=== PATIENT | female | born 1940 | race Caucasian/White ===

== ENCOUNTER 2016-12-17 15:02 | Inpatient (IN) | payer MEDICARE ==
--- NOTE | ~2016-12-17 | DS ---
Unit #: [id number] #: [id number] Patient: ROSALIE LEYVA [id number] [address] [place], [place] [address] [id number] MR#: [id number] NAME: ROSALIE LEYVA ROOM: 462 Age: 76 Sex: F Admission Date: 12/18/2016 : 1940 Discharge Date: 12/24/2016 Attending Physician: Ludy Hoover M.D. Primary Care Physician: Yuriy Tolentino M.D. DISCHARGE SUMMARY FINAL DIAGNOSES 1. Colitis, which is improved. 2. Dehydration. 3. Clostridium difficile negative. 4. Acute kidney injury. 5. Acute on chronic systolic congestive heart failure. 6. Valvular heart disease with aqcm-pt-ladevsmw mitral regurgitation. 7. Elevated troponin. 8. Urinary tract infection with extended spectrum beta lactamases Klebsiella pneumonia positive. 9. Anemia. 10. Multivessel coronary artery disease. 11. History of right cerebrovascular accident. 12. Chronic obstructive pulmonary disease. 13. Hypertension. 14. Hyperlipidemia. 15. Diabetes mellitus type 2. 16. Deep venous thrombosis with filter placement. 17. Past history of gastrointestinal bleed. DISCHARGE MEDICATIONS 1. Mini neb treatment with albuterol q.i.d. 2. Xanax 0.5 mg b.i.d. p.r.n. 3. Coreg 3.125 mg p.o. twice a day. 4. IV meropenem 500 mg q.12 for five days. 5. Potassium 20 mEq twice a day. 6. Aspirin 81 mg daily. 7. Pepcid 20 mg daily. 8. Fish oil capsule 1000 mg b.i.d. 9. Bumex 1 mg twice a day. 10. Tradjenta 5 mg daily. CONSULTATIONS IN THE HOSPITAL 1. Dr. Mix from [facility]. 2. Dr. Saad Erickson from renal services. 3. Dr. Aviles from cardiology services. 4. Dr. Vinnie Lind from pulmonary services. DIAGNOSTIC STUDIES LABORATORY: Lab workup on discharge: Clostridium difficile is negative. BMP shows sodium 135, potassium 4.2, chloride 100, BUN 21, creatinine 2.5. CBC shows WBC 12, hemoglobin 11.2, hematocrit 34.6, and platelet count of 357,000. Urine culture is positive for Klebsiella pneumoniae more than 100,000 colonies. ESBL production confirmed. Unit #: [id number] #: [id number] Patient: ROSALIE LEYVA [facility] Ms. Rosalie Leyva is a 76-year-old female who has multiple medical problems, came to ER with a complaint of diarrhea for two days. She did complain of some nausea and vomiting also, although she did not have any vomiting during hospitalization. CT scan of the abdomen was done which showed colitis. Patient was started on IV Flagyl. Patient also had acute on chronic kidney disease stage 4. Dr. Erickson was consulted. Patient received IV fluids in beginning of the stay and later on was discontinued because she had acute on chronic systolic congestive heart failure. Patient received IV diuretics and later on changed to p.o. She is doing much better at this time. Patient has had left AKA. Patient will be discharged to rehab facility for ongoing care. Patient did have elevated troponin but as per cardiology, there are no signs or symptoms of unstable angina. Will optimize medical treatment. Patient has been noted in the past not to be a surgical candidate for open heart surgery. The patient is on IV Merrem for ESBL UTI. Levaquin was discontinued which was started in the beginning. PHYSICAL EXAMINATION VITAL SIGNS: On discharge, blood pressure is 155/98, respiratory rate 16, pulse 106, temperature 98.3, oxygen saturation 99%. CHEST: Fair air entry. Decreased at the bases. CARDIOVASCULAR: S1, S2 positive. Regular rhythm. ABDOMEN: Soft. EXTREMITIES: Left AKA. Right lower extremity trace edema. DISCHARGE INSTRUCTIONS 1. The patient is being discharged to rehab facility in stable condition. 2. Dr. Tolentino to follow the patient at the skilled nursing. 3. CBC, BMP to be done in two days. 4. PT/OT at rehab. 5. Strict I's and O's. 6. Followup with Dr. Aviles as outpatient in one to two months. Dictated by... Ludy Hoover M.D. Alexys TD: 12/24/2016 12:24 JOB #: [id number] DISCHARGE SUMMARY Page 1 of 1 X Ludy Hoover MD X DISCHARGE SUMMARY
--- NOTE | ~2016-12-17 | CO ---
Unit #: [id number] #: [id number] Patient: ROSALIE CANELA [id number] [address] [place], [place] [address] [id number] I MR#: [id number] NAME: ROSALIE CANELA ROOM: 462 Age: 76 Sex: F Admission Date: 12/18/2016 : 1940 Attending Physician: Ludy Hoover M.D. Primary Care Physician: Yuriy Tolentino M.D. Consultation Date: 12/19/2016 CONSULTATION REPORT REASON FOR CONSULTATION Colitis. HISTORY OF PRESENT ILLNESS This is a 76-year-old lady, who has had a 2-month history of chronic abdominal pain and she has had some recent diarrhea, nausea, and vomiting. She states she feels somewhat better this morning. She has had no nausea or vomiting overnight and was tolerating clears, but she continues to have some diarrhea. PAST MEDICAL HISTORY Significant for numerous medical problems including, but not limited to, congestive heart failure with history of tricuspid and mitral valve regurgitation, coronary artery disease, hypertension, cardiomyopathy, elevated lipids, diabetes, COPD, chronic kidney disease, and history of CVA. PAST SURGICAL HISTORY She has had a tubal ligation, cardiac catheterization, AICD, hysterectomy, and a left above knee amputation. ALLERGIES She has no known drug allergies. MEDICATIONS Please see med rec list for list of medications. SOCIAL HISTORY She does continue to smoke half pack cigarettes per day. She denies any alcohol use. FAMILY HISTORY Significant for coronary artery disease. REVIEW OF SYSTEMS As above. She denies any signs of GI bleeding and there has been no history of weight loss or jaundice. PHYSICAL EXAMINATION VITAL SIGNS: Temperature is 98.3, heart rate 96, blood pressure is 125/60, BMI is 22. GENERAL: She is in no acute distress. HEENT: Pupils are equal and reactive to light and accommodation, and her extraocular muscles are intact. Unit #: [id number] #: [id number] Patient: ROSALIE CANELA NECK: Shows no masses or bruits. LUNGS: Show good breath sounds bilaterally with some scattered wheezing. CARDIAC: Shows regular rate and rhythm with audible murmur. ABDOMEN: Shows some trace tenderness with a little bit more on the left side than the right side and otherwise there is no masses or hernias. EXTREMITIES: Without edema or cyanosis. NEUROLOGIC: She is alert and oriented. There are no focal deficits. She also has a left above knee amputation, this healed. DIAGNOSTIC STUDIES IMAGING STUDIES: CT scan showed some mild colonic wall thickening of the right colon, transverse colon, and sigmoid colon that was consistent with colitis. She also had some uncomplicated gallstones. LABORATORY RESULTS: White count 7000, hemoglobin is 8.9, creatinine is 2.2, potassium is 3.3. OVERALL IMPRESSION This is a 76-year-old lady, who has multiple medical problems, but specifically from our standpoint, has what appears to be a mild colitis. Certainly, seem to be something that should be able to be managed with antibiotics which she is currently on. She certainly seems to be a poor operative candidate given all of her other medical problems and if stable enough, may need to have a colonoscopy done in the future. We will also check her stools for C diff. Dictated by... Jett Mix III, M.D. VCL/aria TD: 12/19/2016 14:43 JOB #: [id number] CONSULTATION REPORT Page 1 of 1 X Jett Mix III, MD CONSULTATION REPORT
--- NOTE | ~2016-12-17 | EKG ---
PATIENT: ROSALIE CANELA UNIT #: [id number] Ventricular Rate: 99 BPM Atrial Rate: 99 BPM P-R Interval: 186 ms QRS Duration: 114 ms Q-T Interval: 406 ms QTC Calculation(Bezet): 521 ms P Hurst: 67 degrees Calculated R Hurst: 76 degrees Calculated T Hurst: -13 degrees Diagnosis Line: Normal sinus rhythm Diagnosis Line: Incomplete left bundle branch block Diagnosis Line: Abnormal QRS-T angle, consider primary T wave Diagnosis Line: abnormality Diagnosis Line: Prolonged QT Diagnosis Line: Abnormal ECG Diagnosis Line: When compared with ECG of 18-JUN-2016 17:29, Diagnosis Line: No significant change was found Diagnosis Line: Confirmed by CUCO BELTRAN MD ([id number]) on Diagnosis Line: 12/21/2016 10:17:25 PM INTERPRETING MD: REBECCA
--- NOTE | ~2016-12-17 | CO ---
Unit #: [id number] #: [id number] Patient: ROSALIE LEYVA [id number] [address] [place], [place] [address] [id number] I MR#: [id number] NAME: ROSALIE LEYVA ROOM: 462 Age: 76 Sex: F Admission Date: 12/18/2016 : 1940 Attending Physician: Ludy Hoover M.D. Primary Care Physician: Yuriy Tolentino M.D. Consultation Date: 12/18/2016 CONSULTATION REPORT REASON FOR CONSULTATION Acute on chronic kidney disease. HISTORY OF PRESENT ILLNESS Ms. Leyva is a 76-year-old female, whom we were asked to see for acute on chronic kidney disease. The patient presented to the emergency room with complaints of diarrhea for two days, which was nonbloody. She also complained of some nausea and vomiting to the ER, but denied this to me. The patient is a poor historian overall. She is unaware of any prior kidney problems, but certainly labs demonstrate this. She was apparently supposed to see a escort blind in the past, but failed to do so. She denies any chest discomfort or shortness of breath. No urinary complaints. PAST MEDICAL HISTORY Significant for chronic kidney disease, stage 4; diabetes with history of very poor control proteinuria; history of congestive heart failure with an ejection fraction of 35% and mitral regurgitation; history of DVT with filter; history of stroke; history of peripheral vascular disease; chronic anemia with GI bleed; COPD with continued tobacco abuse; pulmonary hypertension; hyperlipidemia. PAST SURGICAL HISTORY Hysterectomy, cardiac catheterization, AICD, and amputation. HOME MEDICATIONS As follows. Albuterol inhaler, Xanax 0.5 mg b.i.d., Coreg unknown dose b.i.d., amitriptyline 25 mg at bedtime, fish oil b.i.d., Mirapex unknown dose, Levemir 10 units at bedtime, and Tradjenta 5 mg daily. ALLERGIES She has no known drug allergies. FAMILY HISTORY Significant for heart disease. She has no knowledge of any family history of kidney problems. SOCIAL HISTORY Lives with family. She is a two pack per day smoker. No alcohol or drug abuse. She gets around with a wheelchair, but has been more immobile over the last two weeks. REVIEW OF SYSTEMS A complete 12-point review of systems was attempted that simply made difficult secondary to her poor historical status. She does deny any pain Unit #: [id number] #: [id number] Patient: ROSALIE LEYVA or chills to me. No nosebleed, sore throat, or earache. No palpitations. Some cough. No hemoptysis. No bright red blood per rectum or melena. No dysuria or gross hematuria. No swelling. No rashes. No flank pain. No night sweats or hot flashes. No intolerance to heat or cold. No bleeding issues. No recent weight changes. Unless otherwise indicated, the review of systems was negative. PHYSICAL EXAMINATION VITAL SIGNS: The patient is afebrile. Pulse 91, respiratory rate 19, blood pressure 122/66. GENERAL: This is a 76-year-old female, frail, weak, but in no acute distress. HEENT: Head is atraumatic and normocephalic. Eyes show pale conjunctivae with no scleral icterus. No nasal drainage or nosebleed. Oropharynx is dry. No thrush. NECK: Shows no rigidity. HEART: Regular rate and rhythm with murmur present. No gallop or rub appreciated. LUNGS: Noteworthy for some fine expiratory wheezing. Breathing is nonlabored at rest. ABDOMEN: Soft, nontender, and nondistended. Bowel sounds are present. No rebound. No guarding. EXTREMITIES: No right lower extremity cyanosis or edema. She has a left lower extremity amputation. SKIN: Dry with no rashes. MUSCULOSKELETAL: No joint effusions noted. No CVA tenderness to palpation. NEUROLOGIC: Noteworthy for generalized weakness. LYMPHATIC: There is no neck or cervical lymphadenopathy. PSYCHIATRIC: Mood and affect appear normal. DIAGNOSTIC STUDIES LABORATORY RESULTS: Chemistry today noteworthy for a bicarb of 15 and creatinine down to 2.4 from 2.7 on admission. Urinalysis did have 2+ protein. IMAGING STUDIES: CT scan did reveal a small right atrophic kidney with a chronic UPJ obstruction and a decreasing cystic mass suspected to be benign. Prior creatinines historically have been in the high one to low two range. Most of her hemoglobin A1cs here been in the double digits, and her urinalyses all here have demonstrated some degree of proteinuria. ASSESSMENT AND PLAN 1. Acute on chronic kidney disease, stage 4. I suspect her chronic kidney disease is due to diabetes with poor control and chronic ureteropelvic junction obstruction. Her acute kidney injury is likely prerenal and I do agree with IV fluids. We will recheck labs in the morning. 2. Metabolic acidosis. This will be supplemented with both p.o. and IV bicarb. I suspect it is related to her diarrhea. 3. Proteinuria. The patient is not a candidate for an OLIMPIA OR ARB at this point due to her acute kidney injury status. 4. Diabetes with poor control. 5. History of colitis, on antibiotics. 6. History of congestive heart failure, which looks compensated. 7. Anemia. I will be checking iron stores. Unit #: [id number] #: [id number] Patient: ROSALIE LEYVA I would like to thank Dr. Hoover for this consult and the opportunity to participate in evaluation and care of Ms. Harris. Dictated by... Saad Erickson Jr., M.D. YUE/aria TD: 12/19/2016 19:32 JOB #: [id number] CONSULTATION REPORT Page 1 of 1 X Saad Erickson MD X CONSULTATION REPORT
--- NOTE | ~2016-12-17 | CO ---
Unit #: [id number] #: [id number] Patient: ROSALIE LEYVA [id number] [address] [place], [place] [address] [id number] I MR#: [id number] NAME: ROSALIE LEYVA ROOM: 462 Age: 76 Sex: F Admission Date: 12/18/2016 : 1940 Attending Physician: Ludy Hoover M.D. Primary Care Physician: Yuriy Tolentino M.D. Consultation Date: 12/21/2016 CONSULTATION REPORT Ms. Leyva is a 76-year-old white female with a history of ischemic cardiomyopathy, ejection fraction 30% to 35%, three vessel coronary disease and severe MR. She also has a history of COPD, chronic kidney disease stage 4, DVT with IVC filter done in 06/2016, left CVA with right hemiparesis. She was admitted with nausea, vomiting and diarrhea. She is hydrated with fluids due to her acute on chronic kidney failure. She is about 7 L positive. She was also noted to have a Klebsiella UTI, which was ESBL positive. She had been started on Levaquin and Flagyl. ESBL was no sensitive to Levaquin. Apparently she became more shortness of breath last night. A chest x-ray was done, which showed acute bilateral interstitial infiltrates consistent with pulmonary edema. Cardia enzymes and BNP were ordered. BNP was elevated at 434. Troponin was 0.16 and 0.24. Her renal function has fallen from a creatinine of 2.7 to 2.2 today. No EKG has been done. With hydration her hematocrit has fallen from 35.2 on admission to 29.6 yesterday. Her arterial blood gases yesterday revealed a pH 7.42, pCO2 of 30, pO2 of 61.7 on 2 L. PAST MEDICAL HISTORY 1. History of ischemic cardiomyopathy, ejection fraction of 30% to 35% with severe MR and three vessel coronary artery disease. 2. History of COPD and continued tobacco abuse, two packs a day. 3. History of chronic kidney disease. 4. Diabetes mellitus. 5. History of DVT noted in June with placement of IVC filter due to history of GI bleeding. 6. History of left CVA with right hemiparesis. 7. History of peripheral vascular disease. 8. Chronic anemia with history of GI bleed. 9. Pulmonary hypertension. 10. Hyperlipidemia. PAST SURGICAL HISTORY 1. Hysterectomy. 2. Cardiac catheterization. 3. AICD. 4. Left lower extremity amputation. ALLERGIES None known. HOME MEDICATIONS Albuterol, Xanax, Coreg, amitriptyline, fish oil, Mirapex, Levemir, Tradjenta. Unit #: [id number] #: [id number] Patient: ROSALIE LEYVA FAMILY HISTORY Heart disease. SOCIAL HISTORY Lives with family. Smokes to packs of cigarettes a day. Has not smoked in the hospital. No alcohol or drug abuse. Gets around in a wheelchair, otherwise immobile. REVIEW OF SYSTEMS CONSTITUTIONAL: No fever or chills. Denies cough or purulent sputum. Denies hemoptysis. CARDIOVASCULAR: Denies chest pain. GI: As noted. : No hematuria or dysuria. ENDOCRINE: History of diabetes. No polyuria or polydipsia. HEMATOLOGIC: No easy bruising or bleeding. SKIN: No rash. NEUROLOGIC: History of CVA. Otherwise ten point system negative. PHYSICAL EXAMINATION GENERAL: Elderly white female in no distress. VITAL SIGNS: Blood pressure 131/61, pulse 102, respiratory rate 16, and afebrile. HEENT: Normocephalic and atraumatic. Pupils equal, round, and reactive. Sclerae nonicteric. Nasal passages patent. Posterior pharynx crowded. Dentures in place. Mallampati 3. NECK: Supple. Trachea midline. No cervical or supraclavicular lymphadenopathy. LUNGS: Reveal some crackles in the bases. No wheezes. CARDIAC: Heart sounds distant. Regular rate and rhythm. Unable to appreciate murmur, rub, or gallop. ABDOMEN: Nontender. Bowel sounds present. No hepatosplenomegaly. EXTREMITIES: Right without clubbing, cyanosis, or edema. Status post left AKA. NEUROLOGIC: Awake, oriented. Contractures to right hand. SKIN: Warm and dry. PSYCH: Affect calm. DIAGNOSTIC STUDIES LABORATORY STUDIES: Reviewed and as noted. IMAGING STUDIES: Chest x-ray reviewed and as noted. IMPRESSION 1. Acute systolic congestive heart failure with history of EF 30% to 35%. 2. Ischemic cardiomyopathy, three vessel disease. 3. Severe MR. 4. Elevated troponin. 5. Chronic obstructive pulmonary disease. 6. Acute kidney injury on top of chronic kidney disease stage 4. 7. Diarrhea/colitis noted on CT scan. Negative C. diff study. 8. History of deep venous thrombosis with inferior vena cava filter. 9. Klebsiella Extended Spectrum Beta-Lactamase urinary tract infection. PLANS 1. Diuresis, hold IV fluids. Unit #: [id number] #: [id number] Patient: ROSALIE LEYVA 2. Cardiology to see, rule out SC. 3. Change antibiotics to Merrem for ESBL UTI. 4. Followup lab work. 5. Further recommendations pending this. Dictated by... Juan Alberto Lind M.D. KENYA/henna TD: 12/21/2016 11:43 JOB #: [id number] CONSULTATION REPORT Page 1 of 1 X Juan Alberto Lind MD X CONSULTATION REPORT
--- NOTE | ~2016-12-17 | CR63 ---
[facility] A Service of [facility] RADIOLOGY TEXT RESULTS PATIENT: ROSALIE CANELA LOCATION: [facility]08-18 : [birth year] UNIT #: [id number] AGE: [address]: Ludy Hoover MD SEX: F ORDER DR: [id number] [facility] [address] [place] [facility]. [place], [place] [address] [id number] I MR#: [id number] Acc #: [id number] NAME: ROSALIE CANELA : 1940 SEX: F STUDY DATE/TIME: 12/22/2016 7:45 UNIT: [facility] ROOM: [facility] STUDY DESCRIPTION: CR Chest 2 View Attending Physician: Ludy Hoover M.D. Ordering Physician: Juan Alberto Lind M.D. Primary Care Physician: Yuriy Tolentino M.D. MEDICAL IMAGING REPORT This report is preliminary unless electronic signature is present EXAM Chest, 12/22/2016, 0745 hours. HISTORY 76-year-old woman with acute cardiac decompensation/congestive heart failure. Dehydration. Symptoms x2 days. COMPARISON Chest, 12/20/2016. FINDINGS Two-view chest demonstrates cardiac enlargement with generalized vascular congestion and diffuse pulmonary interstitial edema. There are coexisting bilateral pleural effusions. Pacemaker remains in place with dual pacing leads well located. No interval change noted over the past 48 hours. IMPRESSION Generalized vascular congestion and pulmonary interstitial edema. Probable cardiogenic in origin. No interval improvement noted. Dictated by... Freeman Lancaster M.D. THIS IS AN ELECTRONICALLY VERIFIED REPORT Freeman Lancaster M.D. at 12/22/2016 11:27 AM SEBAS/jose guadalupe TD: 12/22/2016 09:54 JOB #: [id number] MEDICAL IMAGING REPORT [facility] A Service of [facility] RADIOLOGY TEXT RESULTS PATIENT: ROSALIE CANELA LOCATION: [facility] : 41 UNIT #: [id number] AGE: [address]: Ludy Hoover MD SEX: F ORDER DR: Page 1 of 1 COPY
--- NOTE | ~2016-12-17 | CR72 ---
[facility] A Service of [facility] RADIOLOGY TEXT RESULTS PATIENT: ROSALIE CANELA LOCATION: [facility]- : 41 UNIT #: [id number] AGE: [address]: Ludy Hoover MD SEX: F ORDER DR: [id number] [facility] [address]. [place], [place] [address] [id number] I MR#: [id number] Acc #: [id number] NAME: ROSALIE CANELA : 1940 SEX: F STUDY DATE/TIME: 12/20/2016 14:58 UNIT: [facility] ROOM: [facility] STUDY DESCRIPTION: CR Chest Single View Portable Attending Physician: Ludy Hoover M.D. Ordering Physician: Ludy Hoover M.D. Primary Care Physician: Yuriy Tolentino M.D. MEDICAL IMAGING REPORT This report is preliminary unless electronic signature is present EXAM Portable chest x-ray 12/20/2016 HISTORY Short of air. AP radiograph of the chest is presented. The patient gives additional history of short of air. Questionable aspiration. Symptoms beginning today. COMPARISON STUDIES Comparison 06/18/2016. FINDINGS Inferior thorax not included on field of view. Cardiac pacemaker unchanged. Stable cardiac enlargement. Pulmonary vasculature abnormally prominent and indistinct. Increased interstitial markings and peribronchial markings extending from the central lung zones toward the periphery. Patchy airspace densities bilateral ygj-zf-gwyqn lung zones. Small bilateral pleural effusions, right larger than left. Appearance favors cardiogenic pulmonary edema with interstitial airspace and pleural space components. I cannot exclude components of aspiration in the areas of airspace disease in the urc-pt-zrort lung zones bilaterally but I would favor the overall appearance reflecting pulmonary edema. Followup to complete radiographic resolution is recommended. Dictated by... Mitch Smiley M.D. THIS IS AN ELECTRONICALLY VERIFIED REPORT Mitch Smiley M.D. at 12/23/2016 8:26 AM [facility] A Service of [facility] RADIOLOGY TEXT RESULTS PATIENT: ROSALIE CANELA LOCATION: [facility] 462-01 : 41 UNIT #: [id number] AGE: [address]: Ludy Hoover MD SEX: F ORDER DR: TD: 12/20/2016 18:27 JOB #: [id number] MEDICAL IMAGING REPORT Page 1 of 1 COPY
--- NOTE | ~2016-12-17 | CT4 ---
[facility] A Service of [facility] & [facility] RADIOLOGY TEXT RESULTS PATIENT: ROSALIE CANELA LOCATION: [facility] 462-01 : 41 UNIT #: [id number] AGE: [address]: Ludy Hoover MD SEX: F ORDER DR: [id number] [address] [address] [id number] MR#: [id number] Acc #: [id number] NAME: ROSALIE CANELA : 1940 SEX: F STUDY DATE/TIME: 12/17/2016 17:13 UNIT: SEDOF ROOM: [id number] STUDY DESCRIPTION: CT Abd and Pelv Wo Cont Attending Physician: Ryan Muñoz M.D. Ordering Physician: Abdifatah Gallagher M.D. Primary Care Physician: Yuriy Tolentino M.D. MEDICAL IMAGING REPORT This report is preliminary unless electronic signature is present. EXAM CT abdomen and pelvis 12/17/2016 HISTORY Pain, diarrhea, vomiting 8 days. Unable to move right arm up out of way. TECHNIQUE This CT exam was performed with one or more of the following radiation dose reduction techniques: automatic control, adjustment of mA and/or kV according to patient size, and iterative reconstruction. FINDINGS CT abdomen and pelvis performed without administration of intravenous contrast due to limited renal function. Comparison 06/14/2012. Dependent densities in the bilateral lung bases probably represent combination of atelectasis and some degree of mild subpleural fibrotic change. These are more pronounced on the right than the left. There may be some mild underlying emphysema as well. There is no dense airspace disease. No sizable pleural effusion. There may be trace bilateral and not drainable pleural effusions. Cardiac pacing leads are right atrial and right ventricular levels. Coronary arterial calcifications. Heart [id number] limits of normal in size. The liver is unremarkable. Uncomplicated cholelithiasis. No choledocholithiasis or biliary ductal dilatation. Multiple splenic calcified granulomata. Relative atrophy of the pancreas but no acute abnormality. Adrenal glands unremarkable. Punctate nonobstructing left and right renal calculi. Extensive right renal atrophy as on prior examination. Complex cystic structure in the upper pole of the right kidney currently measures 3.8 cm x 2.8 cm, previously 3.5 cm x 5.6 cm. Decreasing size over time favors benign etiology. Previously described findings of chronic pyeloureteral junction stenosis. Decreased caliber of the right renal pelvis previously 10.8 cm now 1.7 cm. No acute perinephric inflammatory change. Chronic bilateral perinephric fat stranding. No indication of ureteral calculi. [facility] A Service of [facility] RADIOLOGY TEXT RESULTS PATIENT: ROSALIE CANELA LOCATION: [facility] 462-01 : 41 UNIT #: [id number] AGE: [address]: Ludy Hoover MD SEX: F ORDER DR: CT PELVIS: No inguinal adenopathy. The urinary bladder is normal in volume. At the superior aspect of the urinary bladder there is a focus of air density which would appear to have soft tissue density along its dependent and antidependent aspects suggesting possible intramural air. The appearance could be secondary to air in a uracal remnant and be a reflection of recent bladder instrumentation. Please correlate with any recent catheterization. The possibility of emphysematous cystitis is felt unlikely. I do not see distinct bladder wall thickening or acute appearing perivesical inflammatory change. Prior examination was not extended through the pelvis and I have no prior pelvic CT for comparison. Patient is status post hysterectomy. There is evidence of pelvic floor laxity. Pelvic floor is incompletely visualized. The lower rectum appears to extend at least 2.9 cm below the pubococcygeal line. No suspicious adnexal structures. No pelvic or retroperitoneal adenopathy. The distal esophagus, stomach, small bowel are unremarkable. Patient appears to retain appendix. There is mild generalized colonic wall thickening in the ascending colon, transverse colon and sigmoid colon most pronounced in the sigmoid colon. Diverticula are present but there is no focal inflamed diverticulum seen. Findings suggest generalized colitis more pronounced in the ascending and proximal transverse colon and sigmoid colon likely of an infectious or inflammatory etiology. There is some mild pericolonic inflammatory change adjacent to the sigmoid colon. There is no indication of abscess, free air or drainable fluid collection. There is no obstruction. Extensive atherosclerotic arterial calcifications. Inferior vena caval filter in the infrarenal cava. The bony structures show degenerative changes in the spine. No acute-appearing bony abnormality. IMPRESSION 1. Abnormal examination. Please see complete details in body of report above. There is mild generalized colonic wall thickening in the distal ascending colon, transverse colon, and sigmoid colon. Most pronounced in the sigmoid colon with some mild associated pericolonic inflammatory changes. The appearance suggests mild colitis in the effected regions. Likely an infectious or inflammatory etiology. There are colonic diverticula seen in the sigmoid colon but there is no inflamed diverticulum seen to indicate diverticulitis. No obstruction, free air fluid collection or abscess. 2. Appendix normal. Small bowel unremarkable. 3. Uncomplicated cholelithiasis. 4. Nonobstructing renal calculi bilaterally. 5. Atrophic right kidney. Evidence of chronic pyeloureteral junction stenosis with decreased renal pelvis distension. See measurements above. Decreasing size of complicated cystic structure in the right upper pole of kidney. See measurements above. Given decrease size since 2012, benign etiology favored. 6. Within the antidependent urinary bladder there is a focus of air which would appear to have soft tissue density along its anterior and STS. [facility] A Service of [facility] RADIOLOGY TEXT RESULTS PATIENT: ROSALIE CANELA LOCATION: [place] [address] : 41 UNIT #: [id number] AGE: [address]: Ludy Hoover MD SEX: F ORDER DR: posterior aspects. This could represent a volume averaging phenomenon. It could represent air in some form of uracal remnant. Correlate with any recent bladder catheterization or instrumentation. Suspicion for emphysematous cystitis is very low. I do not see bladder wall thickening or perivesical inflammatory change. Correlate with urinalysis as well. 7. Pelvic floor laxity. The distal rectum and vagina extend at least 2.9 cm below the pubococcygeal line. Patient is status post hysterectomy. 8. Inferior vena caval filter in place in the infrarenal cava. 9. Extensive atherosclerotic arterial calcifications. 10. Lung bases show evidence of dependent atelectasis and subpleural fibrotic change right greater than left. No dense airspace disease is seen. Dictated by... Mitch Smiley M.D. THIS IS AN ELECTRONICALLY VERIFIED REPORT Mitch Smiley M.D. at 12/19/2016 10:44 PM Nas TD: 12/18/2016 02:10 JOB #: [id number] MEDICAL IMAGING REPORT Page 1 of 1
--- NOTE | ~2016-12-17 | CO ---
Unit #: [id number] #: [id number] Patient: ROSALIE LEYVA [id number] [address] [place], [place] [address] [id number] I MR#: [id number] NAME: ROSALIE LEYVA ROOM: 462 Age: 76 Sex: F Admission Date: 12/18/2016 : 1940 Attending Physician: Ludy Hoover M.D. Primary Care Physician: Yuriy Tolentino M.D. Consultation Date: 12/21/2016 CONSULTATION REPORT REASON FOR CONSULTATION Elevated troponin, acute on chronic systolic congestive heart failure. HISTORY OF PRESENT ILLNESS This is a 76-year-old white female with known coronary artery disease. On her last cardiac cath back in 2007 she had noted severe coronary artery disease and was advised to have a CABG and she refused and wanted medical management. She has LVEF of 30% to 35% with mild to moderate mitral regurgitation. Had a stroke with right side weakness/right side paralysis, chronic systolic heart failure, COPD, chronic kidney disease, diabetes, chronic anemia, who came to the hospital for nausea, vomiting, abdominal pain. Since admission, she was found to have some colitis and being treated. Her symptoms have improved on IV Flagyl. She was initially made NPO and had IV fluids. Now, for the last couple of days she has been getting more dyspneic. They did BNP which showed 434 and her chest x-ray showed pulmonary edema. The patient's IV fluids were stopped. Dr. Lind was consulted. He was also treating her for some mild exacerbation of COPD and we have been consulted to assess with evaluation and management. She has been started on IV Bumex for diuresing. The patient is also being treated for Klebsiella UTI. Her troponin has increased to 0.16 and 0.24. Her latest troponin is pending. On interview and exam, the patient denies any chest pain, pain in her neck, bilateral jaws, shoulders, arms or elbow. She said she feels (1) she is breathing with some exertion and that is in bed. No lower extremity edema in her right lower extremity. Cardiology consulted to help with managing her acute on chronic systolic heart failure and also evaluate the elevated troponin. PAST MEDICAL HISTORY 1. History of coronary artery disease in 2007. Her last cardiac cath after an VT showed left main was normal, 70% stenosis distal to the septal branch of the LAD, first diagonal is 99% stenosis, second diagonal 99% stenosis, left circumflex obtuse marginal one 95% stenosis, RCA was occluded. Medical management. Patient refused CABG. 2. 08/2015, latest 2D echo. LVEF of 30% to 35% and mild to moderate mitral regurgitation. 3. History of systolic congestive heart failure. 4. Previous stroke, paralysis on the right side. 5. AICD, permanent pacemaker. 6. COPD. 7. Diabetes mellitus type 2. 8. Hypertension. 9. Hyperlipidemia. Unit #: [id number] #: [id number] Patient: ROSALIE LEYVA 10. Chronic kidney disease. 11. History of a DVT with filter because she was not felt to be a good candidate for anticoagulation because of GI bleed. 12. History of peripheral vascular disease. 13. Chronic anemia. 14. Nicotine abuse. 15. Left above the knee amputation 2015. 16. History of GI bleed. 17. Wheelchair bound. PAST SURGICAL HISTORY 1. Filter for DVT,2015. 2. AICD, permanent pacemaker. 3. Tubal ligation. 4. Left above the knee amputation. HOME MEDICATIONS 1. Atenolol 2.5 mg inhalation p.r.n. 2. Xanax 0.5 mg p.o. twice daily p.r.n. 3. Carvedilol, dosage unavailable, one tablet p.o. daily. It was noted that patient was on 6.25 mg on last discharge. 4. Amitriptyline 25 mg p.o. at bedtime p.r.n. 5. Fish oil, 1000 mg p.o. twice daily. ALLERGIES No known drug allergies. SOCIAL HISTORY The patient lives with her daughter. She continues to smoke, she says up to two packs of cigarettes a day. No alcohol or illicit drug abuse. She usually gets up in a wheelchair but has been increasingly more immobile over the past couple of weeks. FAMILY HISTORY Positive for coronary artery disease. REVIEW OF SYSTEMS See details in HPI. PHYSICAL EXAMINATION GENERAL: On exam, Rosalie Leyva is a 76-year-old white female. She appears somewhat dyspneic on exertion and with conversation. VITAL SIGNS: Blood pressure is 131/62, heart rate 102, respirations 16, temperature 98.2, O2 sats 100% on 2 L. NECK: Trachea midline. No thyromegaly or lymphadenopathy. 3+ jugular venous distention. HEART: S1, S2. Regular rate and rhythm. Systolic murmur over left sternal border. LUNGS: Bilateral rales in bases. ABDOMEN: Soft, slightly tender. Decreased bowel sounds. EXTREMITIES: On the right lower extremity, pedal pulses are faint. Trace of pedal edema. DIAGNOSTIC STUDIES LABORATORY: Yesterday, ABG - pH 7.427, pCO2 30.4, pO2 61.7, O2 sats 92.3. That is on 2 L. Glucose is 163, BUN 20, creatinine 2.2, eGFR is 21.2, sodium 137, Unit #: [id number] #: [id number] Patient: ROSALIE LEYVA potassium 3.9, chloride 104, CO2 23, calcium 7.7, phosphorus is 2.6. Total protein 6.0, albumin 2.4, bilirubin total 0.4, AST 20, ALT 12, alkaline phos. is 99. BNP is 434. Lactic acid is 2.4, on admission 2.7. Iron is 13. Cardiac enzymes - CK total of 51, troponin is 0.16, CK total is 62, MB is 2.0, percentage of MB is 3.2 and troponin 0.24. WBC 8.6, hemoglobin 9.5, hematocrit 29.6, and platelets 245. Urinalysis - 1+ leukocyte esterase, 2+ protein, 1+ blood, 1+ bacteria. Urine culture is positive for Klebsiella pneumoniae and stool is negative for any C. diff. CARDIOVASCULAR: EKG done today shows normal sinus rhythm with an incomplete left bundle branch block, left atrial abnormality, poor R wave progression. Nonspecific ST-T wave abnormalities in inferior lateral leads. EKG shows normal sinus rhythm with ventricular rate of 99 beats/minute, incomplete left bundle branch block, prolonged QT. Poor R wave progression. IMAGING: Chest x-ray done yesterday shows pulmonary vasculature abnormally prominent and indistinct. Increased interstitial markings and peribronchial markings. Small bilateral pleural effusions, right greater than left. Appearance favors pulmonary edema with interstitial airspace and pleural space components. IMPRESSION 1. Abdominal pain, nausea, vomiting and diarrhea - colitis, which is improving. 2. Acute on chronic systolic congestive heart failure. 3. Acute on chronic hypoxic respiratory failure. 4. History of chronic obstructive pulmonary disease. 5. Acute on chronic kidney disease. 6. Urinary tract infection, positive for Klebsiella pneumoniae and extended spectrum betalactamase. 7. Elevated troponin. 8. Acute coronary syndrome. 9. History of moderate to severe coronary artery disease: Medical management, not a surgical candidate. 10. Left ventricular ejection fraction of 30% to 35% with mild to moderate mitral regurgitation on 2D echo 08/2015. 11. History of previous stroke. 12. Automatic implantable cardioverter defibrillator pacemaker. 13. Chronic obstructive pulmonary disease. 14. Diabetes mellitus type 2. 15. History of hypertension and hyperlipidemia. 16. History of deep venous thrombosis with filter. 17. History of gastrointestinal bleed in the past, not a candidate for anticoagulation. 18. History of peripheral vascular disease. 19. Chronic anemia. 20. Nicotine abuse. 21. Left above the knee amputation. 22. Wheelchair bound. Unit #: [id number] #: [id number] Patient: ROSALIE LEYVA PLAN 1. Cardiology consult to assist with management patient's acute on chronic systolic congestive heart failure. Gently diurese with IV Bumex. Strict intake, output and daily weights. If she doesn't improve, will start on dobutamine drip due to her cardiomyopathy for inotropic therapy. 2. Patient's IV fluids were stopped. 3. Patient's troponin is elevated. Rechecking it this afternoon to see if it is trending downward. On exam, there are no signs or symptoms of unstable angina. Will optimize medical treatment. Patient has been noted in the past not to be a surgical candidate for open heart surgery. The patient has refused that in 2007. The patient was on Coreg and her heart rate is up, her blood pressure is stable. Will restart back at a lower dose. Carvedilol 3.125 mg p.o. twice daily. 4. Put the patient on aspirin 81 mg p.o. daily and watch her H and H closely. The patient is on a daily dose of renal dose. 5. The patient is not on OLIMPIA inhibitor or ARB for cardiomyopathy because of acute on chronic kidney failure. 6. Overall, patient's colitis is improving. She is still on IV Flagyl. Culture is negative for C. diff. 7. Patient is on Merrem for ESBL UTI and she is also on Levaquin. 8. Continue to monitor cardiac enzymes and EKG. Further recommendations pending per Dr. Aviles. Dictated by... Linsey Garza A.P.R.N. for Desiree Haddad/jesus TD: 12/21/2016 11:35 JOB #: [id number] CONSULTATION REPORT Page 1 of 1 X Linsey Garza APRN X CONSULTATION REPORT
--- NOTE | ~2016-12-17 | EKG ---
PATIENT: ROSALIE CANELA UNIT #: [id number] Ventricular Rate: 106 BPM Atrial Rate: 106 BPM P-R Interval: 168 ms QRS Duration: 108 ms Q-T Interval: 390 ms QTC Calculation(Bezet): 518 ms P [place]: 70 degrees Calculated R [place]: 68 degrees Calculated T [place]: -84 degrees Diagnosis Line: Sinus tachycardia with Premature atrial complexes Diagnosis Line: Incomplete left bundle branch block Diagnosis Line: T wave abnormality, consider inferior ischemia Diagnosis Line: Abnormal ECG Diagnosis Line: When compared with ECG of 21-DEC-2016 10:45, Diagnosis Line: Premature atrial complexes are now Present Diagnosis Line: Confirmed by AGUSTO COON MD ([id number]) on 12/23/2016 Diagnosis Line: 6:28:25 PM INTERPRETING MD: SHAGGY GILLIS
[~2016-12-17 15:02] MED LIST: ACETAMINOPHEN500 M2 PO; ACIDOPHILUS LAC1 CAP PO; ACIDOPHILUS1 CA1 PO; ACIDOPHILUS100 MG PO; ALBUTEROL2.5 MG/0.5 INH; ALPRAZOLAM; ALPRAZOLAM PO; ALPRAZOLAM0.25 MG PO; AMITRIPTYLINE H25 MG PO; AMITRIPTYLINE H75 MG PO; AMITRYPTYLINE; AMITRYPTYLINE PO; ANTACID650 MG PO; APRESOLINE PO; ASPERDRINK81 MG PO; ASPIRIN EC81 M1 PO; ASPIRIN PO; ASPIRIN81 M1 PO; ASPIRIN81 MG PO; BACID PO; BACLOFEN10 MG PO; BAYER CHEWABLE81 MG PO; BUMEX PO; BUMEX1 MG PO; BUMEX2 MG PO; CARVEDILOL; CARVEDILOL12.5 MG PO; CARVEDILOL6.25 MG PO; CEFTIN PO; COLACE PO; COMBIVENT U/D3 M2 INH; COREG; COREG PO; COREG12.5 MG PO; COREG6.25 M1 PO; COREG6.25 MG PO; COUMADIN PO; COUMADIN1 MG PO; COUMADIN2.5 MG PO; COUMADIN4 MG PO; CYANOCOBAL1000 MCG/M INJ; DOK100 MG PO; DUONEB 2.5-0.5 M3 ML NEB; FERROUS SULFATE PO; FISH OIL 1,0001 CAP PO; FLORASTOR250 M1 PO; FOLIC ACID1 MG PO; GLYNASE PO; HUMULIN 70100 UNIT/1 SQ; HUMULIN R100 U/ML SUBQ; HYDRALAZINE HCL50 MG PO; IMDUR-ER60 M1 PO; IMDUR-ER60 MG PO; K-DUR20 ME1 DOB; K-DUR20 ME1 PO; K-DUR20 ME2; K-LOR20 MEQ PO; LANOXIN PO; LANTUS100 U/M1 SQ; LANTUS100 U/M1 SUBQ; LANTUS100 U/ML INJ; LANTUS100 U/ML SQ; LANTUS100 U/ML SUBQ; LASIX PO; LASIX20 MG PO; LEVAQUIN PO; LEVAQUIN750 M1 PO; LEVAQUIN750 MG PO; LEVEMIR; LEVEMIR SUBQ; LEVEMIR100 U/ML SQ; LEVEMIR100 UNITS/ SL; LEVEMIR100 UNITS/ SUBQ; LEVIMIR SUBQ; LISINOPRIL PO; LISINOPRIL5 MG PO; LOPRESSOR PO; LOVAZA PO; LOVENOX SUBQ; MACROBID100 MG PO; MACRODANTIN PO; MACRODANTIN50 MG PO; MIRAPEX; NITROFURANTOIN100 M3 PO; NOVOLIN 70/30 U13 M1 SUBQ; NOVOLIN 70/30 U13 ML SQ; NOVOLIN 70/30 V10 M1 SQ; NOVOLIN 70/30 V10 ML INJ; NOVOLIN 70/30 V10 ML SQ; NOVOLIN 70/30 V10 ML SUBQ; NOVOLIN R100 UNITS/; NOVOLIN R100 UNITS/ SUBQ; NOVOLOG100 U/M1; NOVOLOG100 UNITS/ SUBQ; POTASSIUM CHLO20 ME1 PO; PREDNISONE PO; PREDNISONE10 MG/DOSE PO; PRINIVIL10 MG PO; PROTONIX; PROTONIX PO; PROTONIX20 MG PO; REGLAN; REGLAN PO; REGLAN10 MG PO; SIMVASTATIN20 MG PO; SIMVASTATIN40 MG PO; SOD BICARBONATE PO; SODIUM BICARBO650 MG PO; SPIRIVA18 MCG INH; SYMBICORT INH; VANCOMYCIN HCL250 MG PO; VITAMIN B-121000 MC1 IM; VITAMIN D32000 UNI1 PO; VITAMIN D32000 UNIT PO; WALGREENS PHARMACY; WARFARIN SODIUM2 M1 PO; WARFARIN SODIUM2 MG PO; XANAX0.5 M1 PO; ZESTRIL10 M1 PO; ZOCOR; ZOCOR PO; ZOCOR20 MG PO; ZOFRAN PO; ZYVOX IV; [UNRECOGNIZED DRUG - REMARK]; [UNRECOGNIZED DRUG - REMARK]
[2016-12-17] MEDS ORDERED: TRADJENTA5 MG PO (15:06)
[2016-12-17 15:59] LABS: BASOPHIL# 0.1 X10e3 (0-0.3); BASOPHIL% 1.4 % (0-2.5); EOSINOPHIL# 0.3 X10e3 (0-0.7); EOSINOPHIL% 3.4 % (0.0-7.0); HEMATOCRIT 35.2 % (35.0-45.0); HEMOGLOBIN 11.6 gm/dL (12.0-16.0); LYMPHOCYTE# 1.2 X10e3 (1.0-3.5); LYMPHOCYTE% 11.9 % (17.0-45.0); MEAN CORPUSCULAR HEMOGLOBIN 28.3 PG (28-34); MEAN CORPUSCULAR HGB CONC 32.9 g/dL (30-36); MEAN PLATELET VOLUME 7.6 FL (6.5-11.5); MONOCYTE# 0.9 X10e3 (0-1.0); MONOCYTE% 8.6 % (3.0-12.0); NEUTROPHIL# 7.6 X10e3 (1.5-7.1); NEUTROPHIL% 74.7 % (40-75); PLATELET COUNT 438 X10e3 (140-420); RED BLOOD COUNT 4.09 X10e (3.90-5.30); RED CELL DISTRIBUTION WIDTH 16.6 % (11.0-15.5); WHITE BLOOD COUNT 10.2 X10e3 (4.0-10.5)
[2016-12-17 16:02] LABS: DIFF IND NO
[2016-12-17 16:03] LABS: URINE APPEARANCE CLEAR; URINE BILIRUBIN NEG (NEG); URINE BLOOD 1+ (NEG); URINE COLOR YELLOW; URINE GLUCOSE NEG (NORM); URINE KETONE NEG (NEG); URINE LEUKOCYTE ESTERASE 1+ (NEG); URINE NITRATE NEG (NEG); URINE PROTEIN 2+ (NEG); URINE SOURCE CLEAN CATCH; URINE SPECIFIC GRAVITY >=1.030 (1.003-1.035); URINE UROBILINOGEN 0.2 MG/DL (NORM)
[2016-12-17 16:07] LABS: MICRO INDICATED? YES
[2016-12-17 16:11] LABS: CULTURE INDICATED? YES; URINE BACTERIA 1+ (NEG); URINE RBC 0-2 /[HPF] (0-2); URINE SQUAMOUS EPITHELIAL CELL FEW /[HPF]; URINE WBC 0-2 /[HPF] (0-5)
[2016-12-17 16:21] LABS: ALBUMIN SERUM 3.2 g/dL (3.5-5.0); BILIRUBIN, DIRECT 0.1 mg/dL (0.0-0.2); BILIRUBIN,INDIRECT 0.3 mg/dL (0.0-0.9); BILIRUBIN,TOTAL 0.4 mg/dL (0.2-2.0); BUN/CREATININE RATIO 11.48; CALCIUM SERUM 8.5 mg/dL (8.4-10.2); CREATININE SERUM 2.7 mg/dL (0.6-1.4); GLOM FILT RATE Estimated 16.6 mL/min (>60); POTASSIUM 4.2 mmol/L (3.5-5.1); PROTEIN TOTAL SERUM 7.4 g/dL (6.0-8.3)
[2016-12-18 06:32] LABS: BASOPHIL# 0.1 X10e3 (0-0.3); BASOPHIL% 1.1 % (0-2.5); DIFF IND NO; EOSINOPHIL# 0.3 X10e3 (0-0.7); EOSINOPHIL% 3.3 % (0.0-7.0); HEMATOCRIT 31.2 % (35.0-45.0); HEMOGLOBIN 9.8 gm/dL (12.0-16.0); LYMPHOCYTE# 1.3 X10e3 (1.0-3.5); LYMPHOCYTE% 12.9 % (17.0-45.0); MEAN CELL VOLUME 87.7 FL (83-96); MEAN CORPUSCULAR HEMOGLOBIN 27.6 PG (28-34); MEAN CORPUSCULAR HGB CONC 31.5 g/dL (30-36); MEAN PLATELET VOLUME 7.9 FL (6.5-11.5); MONOCYTE# 1.5 X10e3 (0-1.0); MONOCYTE% 14.9 % (3.0-12.0); NEUTROPHIL# 6.9 X10e3 (1.5-7.1); NEUTROPHIL% 67.8 % (40-75); PLATELET COUNT 350 X10e3 (140-420); RED BLOOD COUNT 3.56 X10e (3.90-5.30); WHITE BLOOD COUNT 10.1 X10e3 (4.0-10.5)
[2016-12-18 07:02] LABS: BUN/CREATININE RATIO 10.41; CALCIUM SERUM 8.1 mg/dL (8.4-10.2); CREATININE SERUM 2.4 mg/dL (0.6-1.4); GLOM FILT RATE Estimated 19.1 mL/min (>60); POTASSIUM 4.1 mmol/L (3.5-5.1)
[2016-12-19 03:27] LABS: HEMATOCRIT 27.5 % (35.0-45.0); HEMOGLOBIN 8.9 gm/dL (12.0-16.0); MEAN CELL VOLUME 85.2 FL (83-96); MEAN CORPUSCULAR HEMOGLOBIN 27.5 PG (28-34); MEAN CORPUSCULAR HGB CONC 32.2 g/dL (30-36); MEAN PLATELET VOLUME 7.5 FL (6.5-11.5); RED BLOOD COUNT 3.22 X10e (3.90-5.30); RED CELL DISTRIBUTION WIDTH 16.9 % (11.0-15.5); WHITE BLOOD COUNT 7.6 X10e3 (4.0-10.5)
[2016-12-19 03:51] LABS: BUN/CREATININE RATIO 11.36; CALCIUM SERUM 7.3 mg/dL (8.4-10.2); CREATININE SERUM 2.2 mg/dL (0.6-1.4); GLOM FILT RATE Estimated 21.2 mL/min (>60); POTASSIUM 3.3 mmol/L (3.5-5.1)
[2016-12-19 04:03] LABS: IRON SERUM 13 ug/dL (28-170); TOTAL IRON BINDING CAPACITY 208 ug/dL (269-535); TRANSFERRIN 148 mg/dL (192-382); TRANSFERRIN SATURATION 6 % (20-50)
[2016-12-20 02:39] LABS: HEMATOCRIT 29.6 % (35.0-45.0); HEMOGLOBIN 9.5 gm/dL (12.0-16.0); MEAN CELL VOLUME 86.5 FL (83-96); MEAN CORPUSCULAR HEMOGLOBIN 27.7 PG (28-34); MEAN PLATELET VOLUME 8.2 FL (6.5-11.5); RED BLOOD COUNT 3.43 X10e (3.90-5.30); RED CELL DISTRIBUTION WIDTH 17.2 % (11.0-15.5); WHITE BLOOD COUNT 8.6 X10e3 (4.0-10.5)
[2016-12-20 03:22] LABS: ALBUMIN SERUM 2.4 g/dL (3.5-5.0); BILIRUBIN,TOTAL 0.4 mg/dL (0.2-2.0); BUN/CREATININE RATIO 10.47; CALCIUM SERUM 7.3 mg/dL (8.4-10.2); CREATININE SERUM 2.1 mg/dL (0.6-1.4); GLOM FILT RATE Estimated 22.5 mL/min (>60); PHOSPHOROUS 2.6 mg/dL (2.5-4.6); POTASSIUM 3.8 mmol/L (3.5-5.1)
[2016-12-20 14:53] LABS: ARTERIAL BLD GAS O2 SATURATION 92.3 % (90.0-100.0); ARTERIAL BLOOD GAS PCO2 30.4 mmHg (35.0-45.0); ARTERIAL BLOOD GAS PO2 61.7 mmHg (80.0-100); ARTERIAL BLOOD GAS pH 7.427 (7.350-7.450)
[2016-12-20 14:54] LABS: ARTERIAL BLOOD GAS ART SITE LEFT BRACHIAL; ARTERIAL BLOOD GAS CARBOXY HB 1.1 %sat (0.0-9.0); ARTERIAL BLOOD GAS DELIVERY NASAL CANNULA; ARTERIAL BLOOD GAS MET HB 0.8 %sat (0.0-2.0); ARTERIAL DRAW? YES
[2016-12-20 18:37] LABS: CK TOTAL 51 IU/L (26-140)
[2016-12-21 03:56] LABS: BUN/CREATININE RATIO 9.09; CALCIUM SERUM 7.7 mg/dL (8.4-10.2); CREATININE SERUM 2.2 mg/dL (0.6-1.4); GLOM FILT RATE Estimated 21.2 mL/min (>60); POTASSIUM 3.9 mmol/L (3.5-5.1)
[2016-12-21 04:14] LABS: %MB 3.2 % (0.0-4.0)
[2016-12-21 13:37] LABS: %MB 3.3 % (0.0-4.0); MB 2.1 ng/ml
[2016-12-22 03:46] LABS: BASOPHIL# 0.1 X10e3 (0-0.3); BASOPHIL% 1.3 % (0-2.5); DIFF IND NO; EOSINOPHIL# 0.6 X10e3 (0-0.7); EOSINOPHIL% 5.9 % (0.0-7.0); HEMATOCRIT 32.1 % (35.0-45.0); HEMOGLOBIN 10.3 gm/dL (12.0-16.0); LYMPHOCYTE# 1.8 X10e3 (1.0-3.5); MEAN CELL VOLUME 85.1 FL (83-96); MEAN CORPUSCULAR HEMOGLOBIN 27.4 PG (28-34); MEAN CORPUSCULAR HGB CONC 32.2 g/dL (30-36); MEAN PLATELET VOLUME 8.1 FL (6.5-11.5); MONOCYTE# 1.4 X10e3 (0-1.0); MONOCYTE% 15.1 % (3.0-12.0); NEUTROPHIL# 5.5 X10e3 (1.5-7.1); NEUTROPHIL% 58.7 % (40-75); PLATELET COUNT 379 X10e3 (140-420); RED BLOOD COUNT 3.77 X10e (3.90-5.30); RED CELL DISTRIBUTION WIDTH 17.1 % (11.0-15.5); WHITE BLOOD COUNT 9.4 X10e3 (4.0-10.5)
[2016-12-22 03:55] LABS: BUN/CREATININE RATIO 8.57; CALCIUM SERUM 7.6 mg/dL (8.4-10.2); CREATININE SERUM 2.1 mg/dL (0.6-1.4); GLOM FILT RATE Estimated 22.5 mL/min (>60); POTASSIUM 3.8 mmol/L (3.5-5.1)
[2016-12-23 04:10] LABS: BUN/CREATININE RATIO 8.63; CALCIUM SERUM 8.3 mg/dL (8.4-10.2); CREATININE SERUM 2.2 mg/dL (0.6-1.4); GLOM FILT RATE Estimated 21.2 mL/min (>60); MAGNESIUM 1.4 mg/dL (1.6-3.0)
[2016-12-24 04:12] LABS: HEMATOCRIT 34.6 % (35.0-45.0); HEMOGLOBIN 11.2 gm/dL (12.0-16.0); MEAN CELL VOLUME 85.2 FL (83-96); MEAN CORPUSCULAR HEMOGLOBIN 27.5 PG (28-34); MEAN CORPUSCULAR HGB CONC 32.3 g/dL (30-36); MEAN PLATELET VOLUME 7.7 FL (6.5-11.5); RED BLOOD COUNT 4.06 X10e (3.90-5.30); RED CELL DISTRIBUTION WIDTH 17.4 % (11.0-15.5)
[2016-12-24 04:28] LABS: BUN/CREATININE RATIO 8.4; CREATININE SERUM 2.5 mg/dL (0.6-1.4); GLOM FILT RATE Estimated 18.2 mL/min (>60); PHOSPHOROUS 3.2 mg/dL (2.5-4.6); POTASSIUM 4.2 mmol/L (3.5-5.1)
== END 2016-12-24 14:50 | DRG 391 ==
LOC: SED 15:02 → C4C 19:29 → SEDOF 19:29 → C4C 12-18 03:14 → SEDOF 12-18 03:14 → C4C 12-18 03:30
PROVIDERS: Emergency Medicine; Internal Medicine; Internal Medicine Nephrology; Physician Assistant Medical; Specialist; Surgery
PROC: 05H433Z Insertion of Infusion Device into Left Innominate Vein, Percutaneous Approach (ICD-10-PCS; principal; 2016-12-23)
DX: K52.9 Noninfective gastroenteritis and colitis, unspecified (principal); I50.23 Acute on chronic systolic (congestive) heart failure; J96.21 Acute and chronic respiratory failure with hypoxia; E87.2 Acidosis; N18.4 Chronic kidney disease, stage 4 (severe); N17.9 Acute kidney failure, unspecified; E11.22 Type 2 diabetes mellitus with diabetic chronic kidney disease; D50.9 Iron deficiency anemia, unspecified; F17.210 Nicotine dependence, cigarettes, uncomplicated; I13.0 Hypertensive heart and chronic kidney disease with heart failure and stage 1 through stage 4 chronic kidney disease, or unspecified chronic kidney disease; I69.351 Hemiplegia and hemiparesis following cerebral infarction affecting right dominant side; J44.1 Chronic obstructive pulmonary disease with (acute) exacerbation; N39.0 Urinary tract infection, site not specified; I25.10 Atherosclerotic heart disease of native coronary artery without angina pectoris; E11.65 Type 2 diabetes mellitus with hyperglycemia; Z79.4 Long term (current) use of insulin; B96.1 Klebsiella pneumoniae [K. pneumoniae] as the cause of diseases classified elsewhere; R80.9 Proteinuria, unspecified; Z95.810 Presence of automatic (implantable) cardiac defibrillator; I73.9 Peripheral vascular disease, unspecified; Z99.3 Dependence on wheelchair; I25.5 Ischemic cardiomyopathy; E86.0 Dehydration; I34.0 Nonrheumatic mitral (valve) insufficiency; Z82.49 Family history of ischemic heart disease and other diseases of the circulatory system; E87.6 Hypokalemia; Z86.718 Personal history of other venous thrombosis and embolism
CPT/HCPCS: 36415; 36600; 71010; 71020; 74176; 80048; 80053; 80076; 81003; 82550; 82553; 82728; 82803; 82947; 83036; 83540; 83550; 83605; 83690; 83735; 83880; 84100; 84484; 85025; 85027; 87045; 87086; 87088; 87177; 87186; 87209; 87427; 87493; 87899; 93005; 94640; 94760; 96361; 96374; 97162; 99285; G8978-GP; G8979-GP; G8980-GP; J1650; J1815; J1956; J2185; J2405; J2916; J3475; J3480

== ENCOUNTER 2016-12-27 15:55 | Emergency (ER) | payer MEDICARE ==
[~2016-12-27 15:55] MED LIST changes: +TRADJENTA5 MG PO
== END 2016-12-27 20:20 | disposition home or self-care (01) ==
LOC: CED 15:55
DX: N18.9 Chronic kidney disease, unspecified (principal)
CPT/HCPCS: 99283

== ENCOUNTER 2017-03-25 15:30 | Inpatient (IN) | payer MEDICARE ==
[~2017-03-25] VITALS: Ht 152.4 cm; Wt 50.9 kg
--- NOTE | ~2017-03-25 | HP ---
Unit #: [id number] #: [id number] Patient: ROSALIE LEYVA [id number] [address] [place], [place] [address] [id number] MR#: [id number] NAME: ROSALIE LEYVA ROOM: 338 Age: 76 Sex: F Admission Date: 03/25/2017 : 1940 Attending Physician: Ludy Hoover M.D. Primary Care Physician: Yuriy Tolentino M.D. HISTORY AND PHYSICAL CHIEF COMPLAINT Generalized weakness. HISTORY OF PRESENTING ILLNESS Ms. Leyva is a 76-year-old female with multiple medical problem, was sent to ER for generalized weakness. The patient is not really able to provide much history. She is awake and alert and is able to communicate but very poor historian. The patient's home health nurse called and stated that she is sick and she is confused and she is vomiting. The patient has been weak for many months but is gradually getting worse. Patient was admitted to telemetry unit for further evaluation. The patient seems to be stable, is being evaluated in room 331. She does not complain of anything. She wants to eat. PAST MEDICAL HISTORY The patient does have significant past medical history of: 1. Coronary artery disease. 2. Systolic congestive heart failure with ejection fraction of 30 to 35%. 3. History of CVA with right-sided paralysis. 4. AICD in place. 5. COPD. 6. Hypertension. 7. Hyperlipidemia. 8. Chronic kidney disease. 9. Diabetes mellitus type 2. 10. History of DVT with filter placement. 11. History of peripheral vascular disease. 12. History of chronic anemia. 13. Left above-knee amputation in 2016, wheelchair bound. PAST SURGICAL HISTORY 1. History of AICD. 2. History of left above-knee amputation. 3. History of filter placement. SOCIAL HISTORY Patient lives at home with her daughter. She has a home health nurse who comes and visits her. She has a history of smoking. No history of alcohol abuse or drug abuse. She is wheelchair bound. FAMILY HISTORY Positive for coronary artery disease. ALLERGIES Unit #: [id number] #: [id number] Patient: ROSALIE LEYVA No known drug allergies. MEDICATIONS Home medications are as per medication reconciliation. Please refer to that. Has been reviewed at length. REVIEW OF SYMPTOM As per history of presenting illness, as patient is not really able to give much history and is a very poor historian. PHYSICAL EXAMINATION GENERAL APPEARANCE: The patient seems to be very stable. VITAL SIGNS: Blood pressure is 104/56. Respiratory rate 18. Pulse is 95. Temperature 98.6. Oxygen saturation is 93%. HEENT: Head is normocephalic. CHEST: Fair air entry, decreased at the bases. Rales are positive. CARDIOVASCULAR: S1, S2 positive. Pacemaker click is heard. ABDOMEN: Soft. EXTREMITIES: Right lower extremity-negative edema. DIAGNOSTIC STUDIES LABORATORY: WBC 14.3, hemoglobin 13.5, hematocrit 39.6, platelet count of 360. Troponin is less than 0.05. PT and INR are 12.1 and 1.1. Lactic acid 1.9. Sodium 139, potassium 4.1, chloride 106, BUN 38, creatinine 2.3. Urinalysis shows 4+ bacteria. IMAGING: Chest x-ray was done in ER and that showed the heart size and vascularity and the lungs are clear. ASSESSMENT AND PLAN The patient is being admitted to [facility] with: 1. Generalized weakness. 2. Urinary tract infection. 3. Chronic kidney disease. 4. History of congestive heart failure with ejection fraction of 30 to 35%. 5. History of cerebrovascular with right hemiparesis. 6. Coronary artery disease. 7. Chronic obstructive pulmonary disease. Plan is to admit to [facility]. IV antibiotic is being started. Urine culture has been done. Home medications have been reviewed and adjusted. Accu-Chek a.c. and h.s. will be done. Home medications will be reviewed. Insulin sliding scale is being started. Patient is on anticoagulation therapy. Continue that. Please refer to progress note for further orders. Dictated by Desiree Broussard TD: 03/26/2017 15:22 JOB #: [id number] Unit #: [id number] #: [id number] Patient: ROSALIE LEYVA HISTORY AND PHYSICAL Page 1 of 1 X Ludy Hoover MD X HISTORY AND PHYSICAL
--- NOTE | ~2017-03-25 | CR72 ---
[facility] A Service of [facility] & [facility] RADIOLOGY TEXT RESULTS PATIENT: ROSALIE CANELA LOCATION: [facility] 338-01 : 41 UNIT #: [id number] AGE: [address]: Ludy Hoover MD SEX: F ORDER DR: [id number] [facility] [address] [place], [place] [address] [id number] I MR#: [id number] Acc #: [id number] NAME: ROSALIE CANELA : 1940 SEX: F STUDY DATE/TIME: 03/25/2017 16:12 UNIT: [address] ROOM: [facility] STUDY DESCRIPTION: CR Chest Single View Portable Attending Physician: Ludy Hoover M.D. Ordering Physician: Yakov Anne M.D. Primary Care Physician: Yuriy Tolenitno M.D. MEDICAL IMAGING REPORT This report is preliminary unless electronic signature is present EXAM Portable chest HISTORY Shortness of air congestion fatigue for 2 days. COMPARISON 12/22/2016. FINDINGS This portable view of the chest shows a pacemaker is in good position. The heart size and vascularity are the lungs are clear. There is mild interstitial prominence which is stable. Dictated by... Dante Rasheed M.D. THIS IS AN ELECTRONICALLY VERIFIED REPORT Dante Rasheed M.D. at 03/26/2017 9:06 AM EDDIE/bev TD: 03/26/2017 01:18 JOB #: [id number] MEDICAL IMAGING REPORT Page 1 of 1 COPY
--- NOTE | ~2017-03-25 | DS ---
Unit #: [id number] #: [id number] Patient: ROSALIE LEYVA [id number] [address] [address] [id number] MR#: [id number] NAME: ROSALIE LYEVA ROOM: 338 Age: 76 Sex: F Admission Date: 03/25/2017 : 1940 Discharge Date: 03/29/2017 Attending Physician: Ludy Hoover M.D. Primary Care Physician: Yuriy Tolentino M.D. DISCHARGE SUMMARY FINAL DIAGNOSES Final diagnosis is: 1. Generalized weakness. 2. Urinary tract infection. 3. Urine culture is positive for Escherichia coli more than 100,000 colonies. 4. Systolic congestive heart failure with ejection fraction of 30 to 35%. 5. History of cerebrovascular accident. 6. Diabetes mellitus type 2. 7. Chronic obstructive pulmonary disease. 8. History of left above knee amputation. 9. History of peripheral vascular disease. 10. History of chronic anemia. 11. History of chronic kidney disease. 12. History of deep venous thrombosis with filter placement. DISCHARGE MEDICATIONS Discharge medications are: 1. Macrobid 100 mg p.o. b.i.d. for 5 days. 2. Bumex 1 mg twice a day. 3. Levemir 10 units subcu b.i.d. Please watch for hypoglycemia which patient had during hospitalization. 4. Protonix 20 mg q. day. 5. Amitriptyline 25 mg at bedtime. 6. Remeron 7.5 mg q. day. 7. Desyrel 50 mg at bedtime. 8. Zetia 10 mg q. day. 9. Xanax 0.25 mg twice a day p.r.n. Please avoid if patient is lethargic. 10. Coreg 6.25 mg twice a day. 11. Tradjenta 5 mg q. day. LAB WORKUP ON DISCHARGE Glucose 199, this morning it was 64, potassium 3.6, magnesium 1.7. Urine culture is E. coli more than 100,000 colonies which is sensitive to ampicillin, ceftriaxone and nitrofurantoin. BMP shows sodium 140, potassium 3.4, chloride 20, BUN 45, creatinine 2.9, WBC 12.9, hemoglobin 11.0, hematocrit 33.4 and platelet count of 219. HOSPITAL COURSE Miss Rosalie Leyva is a 76-year-old female who has multiple medical Unit #: [id number] #: [id number] Patient: ROSALIE LEYVA, was admitted with generalized weakness. Patient was found to have UTI, was treated with IV Levaquin and later on changed to IV Rocephin, now is being changed to Macrobid. Patient is being discharged to rehab facility for PT/OT rehab. Patient has a very low appetite and needs assistance with feeds. Her blood sugars have been running low so we have adjusted Lovenox at this time but needs to be observed as outpatient. Patient does have history of congestive heart failure which is compensated. No NSAIDs over the counter because of chronic kidney disease, please. PHYSICAL EXAMINATION VITAL SIGNS: On discharge blood pressure is 106/54, respiratory rate 20, pulse is 94, temperature 98.8, oxygen saturation is 94%. CHEST: Has fair air entry, decreased at the bases. CVS: Pacemaker in place. ABDOMEN: Is soft. DDISCHARGE INSTRUCTION 1. Patient is being discharged to rehab facility in stable condition. 2. PT/OT at rehab. 3. Patient needs assistance with feeds. 4. Accu-Chek a.c./h.s. 5. Observe for hypoglycemia. 6. Avoid sedative if patient is lethargic. 7. Labs will be repeated in one week. Dictated by... Desiree Broussard/gela TD: 03/29/2017 15:40 JOB #: [id number] DISCHARGE SUMMARY Page 1 of 1 X Ludy Hoover MD X DISCHARGE SUMMARY
--- NOTE | ~2017-03-25 | EKG ---
PATIENT: ROSALIE CANELA UNIT #: [id number] Ventricular Rate: 115 BPM Atrial Rate: 115 BPM QRS Duration: 122 ms Q-T Interval: 428 ms QTC Calculation(Bezet): 592 ms P [place]: 72 degrees Calculated R [place]: 105 degrees Calculated T [place]: 54 degrees Diagnosis Line: Ventricular-paced rhythm Diagnosis Line: Abnormal ECG Diagnosis Line: When compared with ECG of 22-DEC-2016 05:44, Diagnosis Line: Electronic ventricular pacemaker has replaced Diagnosis Line: Sinus rhythm Diagnosis Line: Confirmed by SHANITA EUGENE MD ([id number]) on 03/27/2017 Diagnosis Line: 11:01:10 PM INTERPRETING MD: VALORIE GILLIS
[2017-03-25] MEDS ORDERED: EZETIMIBE10 MG PO (16:41)
[2017-03-25] MEDS ORDERED: COREG6.25 MG PO (16:41)
[2017-03-25] MEDS ORDERED: REMERON PO (16:41)
[2017-03-25] MEDS ORDERED: PROTONIX PO (16:41)
[2017-03-25] MEDS ORDERED: BUMEX1 MG PO (16:41)
[2017-03-25] MEDS ORDERED: ALPRAZOLAM PO (16:41)
[2017-03-25] MEDS ORDERED: TRADJENTA5 MG PO (16:41)
[2017-03-25] MEDS ORDERED: NOVOLOG100 U/ML (16:42)
[2017-03-25] MEDS ORDERED: DESYREL50 MG PO (16:42)
[2017-03-25] MEDS ORDERED: AMITRIPTYLINE H25 MG PO (16:42)
[2017-03-25] MEDS ORDERED: LEVEMIR FL100 UNIT/1 SUBQ (16:42)
[2017-03-25 16:52] LABS: BASOPHIL# 0.1 X10e3 (0-0.3); BASOPHIL% 0.7 % (0-2.5); DIFF IND NO; EOSINOPHIL% 0.1 % (0.0-7.0); HEMATOCRIT 39.6 % (35.0-45.0); HEMOGLOBIN 13.5 gm/dL (12.0-16.0); LYMPHOCYTE# 0.6 X10e3 (1.0-3.5); LYMPHOCYTE% 4.3 % (17.0-45.0); MEAN CELL VOLUME 91.8 FL (83-96); MEAN CORPUSCULAR HEMOGLOBIN 31.3 PG (28-34); MEAN CORPUSCULAR HGB CONC 34.1 g/dL (30-36); MONOCYTE# 1.1 X10e3 (0-1.0); MONOCYTE% 7.6 % (3.0-12.0); NEUTROPHIL# 12.5 X10e3 (1.5-7.1); NEUTROPHIL% 87.3 % (40-75); PLATELET COUNT 360 X10e3 (140-420); RED BLOOD COUNT 4.32 X10e (3.90-5.30); RED CELL DISTRIBUTION WIDTH 17.6 % (11.0-15.5); WHITE BLOOD COUNT 14.3 X10e3 (4.0-10.5)
[2017-03-25 16:58] LABS: POC - CKMB 2.2 ng/mL (0.0-7.9); POC - TROPONIN <0.05 ng/mL (<=0.05)
[2017-03-25 17:02] LABS: INR 1.1; PARTIAL THROMBOPLASTIN TIME 26.3 SECONDS (23.5-31.3); PROTHROMBIN TIME (PATIENT) 12.1 SECONDS (10.0-11.7)
[2017-03-25 17:12] LABS: ALBUMIN SERUM 3.5 g/dL (3.5-5.0); BILIRUBIN, DIRECT 0.1 mg/dL (0.0-0.2); BILIRUBIN,INDIRECT 0.9 mg/dL (0.0-0.9); BUN/CREATININE RATIO 16.52; CALCIUM SERUM 9.2 mg/dL (8.4-10.2); CREATININE SERUM 2.3 mg/dL (0.6-1.4); GLOM FILT RATE Estimated 20.1 mL/min (>60); POTASSIUM 4.1 mmol/L (3.5-5.1); PROTEIN TOTAL SERUM 7.8 g/dL (6.0-8.3)
[2017-03-25 18:03] LABS: URINE APPEARANCE TURBID; URINE BILIRUBIN NEG (NEG); URINE BLOOD 2+ (NEG); URINE COLOR YELLOW; URINE GLUCOSE >1000 MG/DL (NEG); URINE KETONE NEG (NEG); URINE LEUKOCYTE ESTERASE 2+ (NEG); URINE NITRATE NEG (NEG); URINE PROTEIN 3+ (NEG); URINE SPECIFIC GRAVITY 1.018 (1.003-1.035); URINE UROBILINOGEN 0.2 MG/DL (NEG)
[2017-03-25 18:05] LABS: CULTURE INDICATED? YES; URINE BACTERIA AUWI 4+ (NEGATIVE); URINE SQUAMOUS EPITHELIAL CELL MOD /[HPF]; UWBCS1 AUWI INNUM (0-5)
[2017-03-25 18:07] LABS: U HYALINE CASTS AUWI 0-2 /[LPF]
[2017-03-27 05:52] LABS: HEMATOCRIT 33.4 % (35.0-45.0); MEAN CELL VOLUME 93.2 FL (83-96); MEAN CORPUSCULAR HEMOGLOBIN 30.8 PG (28-34); MEAN PLATELET VOLUME 8.8 FL (6.5-11.5); RED BLOOD COUNT 3.59 X10e (3.90-5.30); RED CELL DISTRIBUTION WIDTH 17.1 % (11.0-15.5); WHITE BLOOD COUNT 12.9 X10e3 (4.0-10.5)
[2017-03-27 06:39] LABS: BUN/CREATININE RATIO 15.51; CALCIUM SERUM 8.4 mg/dL (8.4-10.2); CREATININE SERUM 2.9 mg/dL (0.6-1.4); GLOM FILT RATE Estimated 15.2 mL/min (>60); POTASSIUM 3.4 mmol/L (3.5-5.1)
[2017-03-29 00:21] LABS: MAGNESIUM 1.7 mg/dL (1.6-3.0); POTASSIUM 3.6 mmol/L (3.5-5.1)
== END 2017-03-29 20:30 | DRG 690 ==
LOC: CED 15:30 → CEDOF 18:30 → CED 19:22 → CEDOF 20:12 → C3A PCU 20:12
PROVIDERS: Emergency Medicine; Physician Assistant Medical
DX: N39.0 Urinary tract infection, site not specified (principal); I13.0 Hypertensive heart and chronic kidney disease with heart failure and stage 1 through stage 4 chronic kidney disease, or unspecified chronic kidney disease; I50.22 Chronic systolic (congestive) heart failure; E11.22 Type 2 diabetes mellitus with diabetic chronic kidney disease; I69.951 Hemiplegia and hemiparesis following unspecified cerebrovascular disease affecting right dominant side; R53.1 Weakness; I25.10 Atherosclerotic heart disease of native coronary artery without angina pectoris; N18.9 Chronic kidney disease, unspecified; Z95.810 Presence of automatic (implantable) cardiac defibrillator; E78.5 Hyperlipidemia, unspecified; J44.9 Chronic obstructive pulmonary disease, unspecified; I73.9 Peripheral vascular disease, unspecified; Z89.612 Acquired absence of left leg above knee; Z99.3 Dependence on wheelchair; E87.6 Hypokalemia; B96.20 Unspecified Escherichia coli [E. coli] as the cause of diseases classified elsewhere
CPT/HCPCS: 36415; 51702; 71010; 80048; 80076; 81003; 82553; 82947; 83605; 83735; 83880; 84132; 84484; 85025; 85027; 85610; 85730; 87086; 87088; 87186; 93005; 96361; 96374; 99291; J0696; J1650; J1815; J1956; J2405